=== PATIENT | female | born 1950 | race Caucasian/White ===

== ENCOUNTER 2022-07-01 14:06 | Emergency (ER) | payer OTHER, MEDICARE, SELFPAY ==
[2022-07-01 14:16] VITALS: BP 120/82; PULSE 74; RESP 18; TEMP 36.6; O2SAT 96; BMI 32.7
--- NOTE | 2022-07-01 14:48 | CRLHL7_ITS ---
For Patients: As a result of the Century Cures Act, medical imaging exams and procedure reports are released immediately into your electronic medical record. You may view this report before your referring provider. If you have questions, please contact your health care provider. INDICATION: Headache, left eye pain, nausea. TECHNIQUE: CT head without contrast. Coronal and sagittal reformats were generated. COMPARISON: CT head from 02/22/2016. FINDINGS: CSF spaces: Within normal limits for age. Brain parenchyma and extra-axial spaces: The ibrahim-white differentiation is normal. No sign of mass, hemorrhage, or midline shift. No extra-axial fluid collection. Skull base and calvarium: Mild mucosal thickening of the left maxillary sinus. The other visualized paranasal sinuses and mastoid air cells demonstrate no acute or significant findings. Stable hyperdense left globe, with scleral buckle, suggestive of prosthesis. The right orbits is grossly unremarkable. No skull fractures. IMPRESSION: No acute intracranial abnormality. Please note that all CT scans at this facility use dose modulation, iterative reconstruction, and/or weight-based dosing when appropriate to reduce radiation dose to as low as reasonably achievable. Dictated by Benjamin Steele MD @ 07/01/2022 3:52:12 PM (Electronically Signed)
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
== END 2022-07-01 15:55 | disposition home or self-care (01) ==
PROVIDERS: Emergency Provider Emergency Medicine Emergency Medical Services; PCP Family Medicine
DX: H57.12 Ocular pain, left eye (principal)
CPT/HCPCS: 70450; 99284; 99285

== ENCOUNTER 2023-08-22 14:30 | Outpatient (RCR) | payer MEDICARE, SELFPAY | END 2023-12-20 23:59 | disposition home or self-care (01) | PROVIDERS: PCP Family Medicine; Visit Provider Family Medicine | DX: H81.10 Benign paroxysmal vertigo, unspecified ear (principal); Z51.89 Encounter for other specified aftercare | CPT/HCPCS: 95992; 97110; 97140; 97161 ==

== ENCOUNTER 2024-08-28 17:57 | Observation (INO) | payer MEDICARE, SELFPAY ==
[2024-08-28] VITALS (9 sets, daily range): BP systolic 143–161; BP diastolic 91–99; PULSE 65–75; RESP 16–18; TEMP 36–36.6; O2SAT 95–96; BMI 33.8; BMI 34.0
--- OUTSIDE RECORDS SUMMARY | 2024-08-28 18:00 | XMS_ITS | Clinical Summary ---
Author Organization [facility] Address [place], [place] [address] Care Team Providers Care Winding Department Supervisor Name Role Phone Patty Mayo MD Primary Care Provide r Allergies Active Allergy Reactions Criticality Noted Date Comments Lisinopril Cough 08/24/2013 Morphine Rash 06/27/2007 Wool Hives High 09/12/2016 Medications MULTIVITAMIN TAB take 1 tablet by oral route once daily with food 0 03/08/20 07 Active calcium 600 mg capsule Take 1 capsule by mouth 2 times daily with meals. 0 01/01/20 10 Active cholecalciferol (VITAMIN D) 2,000 unit capsule Take 1 capsule by mouth once daily. 0 12/31/19 11 Active aspirin-acetaminop hen-caffeine, 250-250-65 mg, (EXCEDRIN MIGRAINE) 250-250-65 mg tablet Take 1 tablet by mouth every 6 hours if needed for Headache. Max acetaminophen dose: 4000mg in 24 hrs. 30 tablet 0 11/19/19 15 Active levothyroxine (SYNTHROID) 75 mcg tabletIndications: Hypothyroidism (acquired) Take 1 Tablet (75 mcg) by mouth before breakfast. 90 Tablet 3 09/07/19 24 Active losartan-hydrochlo rothiazide, 50-12.5 mg, (HYZAAR) 50-12.5 mg tabletIndications: Hypertension, unspecified type,HTN (hypertension) Take 1 Tablet by mouth once daily. 90 Tablet 3 09/26/19 24 Active atorvastatin (LIPITOR) 40 mg tabletIndications: Hyperlipidemia, unspecified hyperlipidemia type Take 1 Tablet (40 mg) by mouth at bedtime. 90 Tablet 3 09/26/19 24 Active timoloL maleate (TIMOPTIC) 0.5 % ophthalmic solution Place 1 Drop into both eyes two times daily. 02/15/20 24 Active arm brace (Wrist Brace) miscIndications:Le ft wrist pain As directed 1 Each. 03/07/20 24 Active leg brace (Ankle Brace) miscIndications:Ac ione left ankle pain As directed. 03/07/20 24 Active celecoxib (CeleBREX) 200 mg capsuleIndications :Hand numbness Take 1 Capsule (200 mg) by mouth once daily with a meal. For joint pains 30 Capsule 2 03/07/20 24 Active oxybutynin XL (DITROPAN XL) 10 mg CR tabletIndications: Urge incontinence Take 1 Tablet (10 mg) by mouth once daily. 90 Tablet 07/05/20 24 Active sertraline (ZOLOFT) 100 mg tabletIndications: Depression, major, single episode, mild (HC) Take 1 Tablet (100 mg) by mouth once daily in the morning. 90 Tablet 3 07/19/20 24 Active Active Problems Problem Noted Date Diagnosed Date Depression, major, single episode, mild 08/08/19 19 Hyperlipidemia, unspecified 04/06/2017 History of retinal detachment 11/15/2013 CMC arthritis, thumb, degenerative 08/16/2013 Adjustment disorder with depressed mood 08/31/19 13 Knee arthropathy 08/01/2012 H/O vitrectomy 07/27/2012 Overview (07/27/2012): Posterior Vitrectomy 20ga, Scleral Buckle [Other], 07-06-12, Dr. 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 2011 Postmenopausal atrophic vaginitis 02/21/2012 Mitral regurgitation 03/26/2009 Overview (05/01/2014): 2011 Echo - Trace to mild Screen for colon cancer 01/02/2009 Overview (01/02/2009): Colonoscopy 12/2008 normal repeat in 10 years HTN (hypertension) 12/11/2008 Overview (10/06/2009): Updated by system to replace inactive record Unspecified hypothyroidism 10/16/2006 Resolved Problems Problem Noted Date Diagnosed Date Resolved Date CMC arthritis, thumb, degenerative 08/19/2013 08/19/2013 Elevated blood pressure read ing without diagnosis of hypertension 01/18/2007 12/11/2008 Encounters Date Type Department Care Team Description 07/19/2024 10:00 AM DRY STARCH OPERATOR Ancillary Procedure [address] [address] 07/19/2024 8:50 AM DRY STARCH OPERATOR Office Visit [address] [address] Patty Mayo MD Depression 07/19/[address] [address] Patty Mayo MD Results 07/19/2024 Travel 07/02/[address] [address] Patty Mayo MD Refill Request (Oxybutynin Xl) 06/21/2024 Nurse Triage [address] [address] Patty Mayo MD Depression 06/21/[address] [address] Patty Mayo MD Medication Management from Last 3 Months Immunizations Name Administration Dates Next Due AMB Influenza, IIV3 (Age >=3 years)(Flu Clinic Only) 05/04/2012 COVID-19 VACCINE SPIKEVAX (M ODERNA 50MCG/0.5ML) 12YO+ PFS 04/12/2024 COVID-19 vaccine (Moderna 10 0mcg/0.5mL) PF MDV 09/01/2020,08/04/2020 Influenza, High-dose Inactivated 04/24/2018,03/24,06/23/2015 Influenza, High-dose Quadriv alent Inactivated 05/13/2021 Influenza, IIV4 04/01/2014 Influenza, Inactivated AIIV4 (Age 65+ Years) Preserv Free 06/03/2023,05/28/2020 Influenza, Inactivated IIV3 (Age 65+ Years) Preserv Free 04/12/2024,04/06/2017 Pneumococcal Poly,23-Valent (Pneumovax) 02/11/20 15 Pneumococcal conj 13-Valent (Prevnar 13) 016 Td (Age >=7 Years) 03/17/2000 Tdap 12/30/2010 Zoster (Zostavax-ZVL, live) 02/02/2012 Family History Medical History Relation Name Comments Liver cancer Brother 1 Toño Alcohol/Drug Father Stroke Father Other Grandchild Crohn's disease Diabetes Maternal Grandmother Thyroid Disease Maternal Grandmother Goit er Cancer-breast Mother Patricia Willard Age 81, on HRT Cancer Sister 3 ovarian or endo metrial Cancer Sister 4 cervical Anesthesia Problem No Family History Blood Disease No Family History Cancer-ovarian No Family History Relation Name Status Comments Brother 1 Toño Alive Brother 2 Armando Alive Daughter 1 Corrinna Alive Daughter 2 Sheri Alive Father Grandchild Maternal Grandfather Maternal Grandmother Mother Patricia Willard Alive Paternal Grandfather Paternal Grandmother Sister 1 Kami Alive Sister 2 Shartorey Alive Sister 3 Sister 4 Son 1 Lio Jr Alive Son 2 Nicolas Alive Son 3 Bonilla Alive Social History Tobacco Use Types Packs/Day Years Used Date Smoking Tobacco: Former Cigarettes 0.5 15 0 07/24/1976 - 07/24/1991 Passive Smoke Exposure: Never Smokeless Tobacco: Never Tobacco Cessation:Counseling Given: No Alcohol Use Standard Drinks/Week Comments Yes 0 (1 standard drink = 0.6 oz pur e alcohol) 1 wine per month PHQ-2 Answer Date Recorded PHQ-2 TOTAL SCORE 3 07/19/2024 Social Connections Answer Date Recorded Do you often feel lonely or isolated from those around you? 0 09/26/2023 Financial Resource Strain Answer Date R ecorded Difficulty of Paying Living Expenses 3 09/26/2023 Difficulty of Paying Living Expenses Not on file 09/26/2023 Food Insecurity Answer Date Recorded Do you worry your food will run out before you are able to buy more? 1 09/26/2023 Transportation Needs Answer Date Record ed Does lack of transportation keep you from medica l appointments? 1 09/26/2023 Does lack of transportation keep you from work, meetings or getting things that you need? 1 09/26/2023 Housing Stability Answer Date Recorded What is your housing situation today? 1 09/26/2023 Utilities Answer Date Recorded Do you have trouble paying f or utilities (for example, heat, electricity, water, phone)? 1 09/26/2023 Comments No Sex and Gender Information Value Date Recorded Sex Assigned at Not on file Legal Sex Female 5:46 AM DRY STARCH OPERATOR Gender Identity Not on file Sexual Orientation Not on file Occupation Industry Job Start Date Job End Date Not on file Not on file Not on file Not on file Obstetrics History Para Term AB IAB SAB Ectopic Multiple Livin g Live Births 6 5 5 5 Date Outcome GA Total Labor Labor/2nd/3rd Weight Sex Type Anes PTL Nieves A1 A5 Name Clin Term Term Term Term Term Last Filed Vital Signs Vital Sign Reading Time Taken Comments Blood Pressure 113/75 07/19/2024 9:00 AM DRY STARCH OPERATOR Pulse 62 07/19/2024 9:00 AM DRY STARCH OPERATOR Temperature 36.4 C (97.5 F) 11/28/2023 8:36 AM CDT Respiratory Rate 16 11/28/2023 9:30 AM CDT Oxygen Saturation 98% 07/19/2024 9:00 AM DRY STARCH OPERATOR Inhaled Oxygen Concentration - - Weight 85.6 kg (188 lb 11.2 oz) 07/19/2024 9:00 AM DRY STARCH OPERATOR Height 158.1 cm (5' 2.25) 09/26/2023 1:13 PM CS T Body Mass Index 34.24 09/26/2023 1:13 PM DRY STARCH OPERATOR Plan of Treatment Health Maintenance Due Date Last Done Comments Zoster (shingles) series for age 50+ (2 of 3) 03/29/2012 02/02/2012 Tetanus booster 12/30/2020 12/30/2010, 03/17/2000 RSV vaccine for adults or (1 - 1-dose 75+ series) 2024 BMI (ht and wt on same day) for age 18+ 09/25/2024 09/26/2023, 08/04/2022, 07/13/2021, Additional history exists Medicare Wellness for age 65+ 09/26/20244, 08/04/2022, 07/13/2021, Additional history exists Depression screening for age 12+ 07/19/2025 07/19/2024, 07/19/2024, 09/26/2023, Additional history exists Fecal testing sDNA-FIT (Sidney guard) for age 45-75 10/24/2026 10/25/2023 Lipids for age 45-75 06/30/2028 06/30/2023, 08/04/2022, 11/19/2021, Additional history exists Tdap Completed 12/30/2010 DEXA/DXA scan for age 65+ Completed 02/26/2015 Pneumococcal series for age 50+ Completed 6, 02/10/2015 Hepatitis C screening for ag e 18-79 Completed 03/14/2017 COVID-19 vaccine series Completed 04/12/20 24, 06/03/2023, 04/21/2022, Additional history exists Influenza for age 65+ Completed 04/12/2024 , 06/03/2023, 05/13/2021, Additional history exists Medical Devices Implanted Type Area Planning Specialist Device Identifier Shelf Expiration Date Model / Serial / Lot Sleeve Silcn 1.00i.D.X2.1mm Od [id number] [id number] [employer] - [id number] Implanted:Qty: 1 on 07/06/2012 by Dash Mendoza MD at [facility] Left: Eye 08/23/2018 [id number]# / / [id number] Strip Silcn 1.25x4.0x125 [id number] - [id number] Implanted:Qty: 1 on 07/06/2012 by Dash Mendoza MD at [facility] Left: Eye 09/20/2018 [id number]# / / [id number] Wire Kirs [id number] Smooth 6/Pk 1646-10-000 Depuy/Juan - [id number] Implanted:Qty: 1 on 11/28/2023 by Tate Gray DPM at [facility] Left: Toe [employer] 0 / / Short K-Wire Implanted:Qty: 1 on 11/28/2023 by Tate Gray DPM at [facility] Left: Toe [id number] / / Procedures Procedure Name Priority Date/Time Associated Diagnosis Comments XR SPINE LUMBAR 3 VIEWS Routine 07/19/2024 10:03 AM DRY STARCH OPERATOR Acute midline low back pain with left-sided sciatica SDNA-FIT EXTERNAL (COLOGUARD) Routine 10/25/2023 9:30 AM CDT Screening for colon cancer LIPID PANEL W REFLEX MEASURED LDL Routine 06/30/2023 2:13 PM DRY STARCH OPERATOR Hyperlipidemia, unspecified hyperlipidemia type ANTI HCV Routine 03/14/2017 12:20 PM CDT Need for hepatitis C screening test XR DXA BONE DENSITY 2 SITES AXIAL Routine 02/26/2015 2:14 PM CDT Postmenopausal from Last 3 Months or Most Recently Relevant to Health Maintenance Results * XR SPINE LUMBAR 3 VIEWS (07/19/2024 10:03 AM DRY STARCH OPERATOR) Anatomical Region Laterality Modality LUMBAR SPINE Computed Radiogr aphy 07/19/2024 4:15 PM DRY STARCH OPERATOR Impressions 07/19/2024 4:15 PM DRY STARCH OPERATOR Lower lumbar spine degenerative facet arthropathy particularly on the right. Left-sided bridging osteophyte formation at L4-5. Dictated by Dash Baltazar MD @ 07/19/2024 4:15:29 PM (Electronically Signed) Narrative 07/19/2024 4:15 PM DRY STARCH OPERATOR For Patients: As a result of the Cures Act, medical imaging exams and procedure reports are released immediately into your electronic medical record. You may view this report before your referring provider. If you have questions, please contact your health care provider. INDICATION: Acute midline low back pain with left-sided sciatica TECHNIQUE: 3-view lumbar spine. COMPARISON: none FINDINGS: Mild leftward curvature lumbar spine. Degenerative facet arthropathy lower lumbar spine particularly at L5-S1. No vertebral body compression fracture. Disc space narrowing L4-5. Vascular calcifications. Procedure Note Dash Baltazar MD - 07/19/2024 For Patients: As a result of the 21st Century Cures Act, medical imagingexams and procedure reports are released immediately into your electronicmedical record. You may view this report before your referring provider.If you have questions, please contact your health care provider. INDICATION: Acute midline low back pain with left-sided sciatica TECHNIQUE: 3-view lumbar spine. COMPARISON: none FINDINGS: Mild leftward curvature lumbar spine. Degenerative facet arthropathy lowerlumbar spine particularly at L5-S1. No vertebral body compressionfracture. Disc space narrowing L4-5. Vascular calcifications. IMPRESSION: Lower lumbar spine degenerative facet arthropathy particularly on theright. Left-sided bridging osteophyte formation at L4-5. Dictated by Dash Baltazar MD @ 07/19/2024 4:15:29 PM (Electronically Signed) us Patty Mayo MD GENERAL IMAGING Final Result * SDNA-FIT EXTERNAL (COLOGUARD) (10/25/2023 9:30 AM CDT) NONINV COLON CA DNA+OCC BLD SCRN STL-IMP Negative Negative 10/31/2023 9:02 AM CDT [facility] (CLIA #:[id number]) Comment: NEGATIVE TEST RESULT. A negative Cologuard result indicates a low likelihood that a colorectal cancer (CRC) or advanced adenoma (adenomatous polyps with more advanced pre-malignant features) is present. The chance that a person with a negative Cologuard test has a colorectal cancer is less than 1 in 1500 (negative predictive value >99.9%) or has an advanced adenoma is less than 5.3% (negative predictive value 94.7%). These data are based on a prospective cross-sectional study of 10,000 individuals at average risk for colorectal cancer who were screened with both Cologuard and colonoscopy. (Anca Putnam et al, N Engl J Med 2014;370(14):6033-8556) The normal value (reference range) for this assay is negative. COLOGUARD RE-SCREENING RECOMMENDATION: Periodic colorectal cancer screening is an important part of preventive healthcare for asymptomatic individuals at average risk for colorectal cancer. Following a negative Cologuard result, the [place] [employer] Society and U.S. Multi-Society Task Force screening guidelines recommend a Cologuard re-screening interval of 3 years. References: [place] [employer] Guideline for Colorectal Cancer Screening: https://www.cancer.org/cancer/njoia-llcidz-egwdjb/fwrctrgmb-bvgypphuu-qisycpi/ac s-rec ommendations.html.; Fito DEJESUS, Tia OLIVAREZ, Jerad PEREIRA, Colorectal Cancer Screening: Recommendations for Physicians and Patients from the U.S. Multi-Society Task Force on Colorectal Cancer Screening , Am J Gastroenterology 2017; 112:2203-8875. TEST DESCRIPTION: Composite algorithmic analysis of stool DNA-biomarkers with hemoglobin immunoassay. Quantitative values of individual biomarkers are not reportable and are not associated with individual biomarker result reference ranges. Cologuard is intended for colorectal cancer screening of adults of either sex, 45 years or older, who are at average-risk for colorectal cancer (CRC). Cologuard has been approved for use by the U.S. FDA. The performance of Cologuard was established in a cross sectional study of average-risk adults aged 50-84. Cologuard performance in patients ages 45 to 49 years was estimated by sub-group analysis of near-age groups. Colonoscopies performed for a positive result may find as the most clinically significant lesion: colorectal cancer [4.0%], advanced adenoma (including sessile serrated polyps greater than or equal to 1cm diameter) [20%] or non- advanced adenoma [31%]; or no colorectal neoplasia [45%]. These estimates are derived from a prospective cross-sectional screening study of 10,000 individuals at average risk for colorectal cancer who were screened with both Cologuard and colonoscopy. (Anca Reaves. et al, N Engl J Med 2014;370(14):7784-1418.) Cologuard may produce a false negative or false positive result (no colorectal cancer or precancerous polyp present at colonoscopy follow up). A negative Cologuard test result does not guarantee the absence of CRC or advanced adenoma (pre-cancer). The current Cologuard screening interval is every 3 years. ([place] [employer] Society and U.S. Multi-Society Task Force). Cologuard performance data in a 10,000 patient pivotal study using colonoscopy as the reference method can be accessed at the following location: www.[employer]/results. Additional description of the Cologuard test process, warnings and precautions can be found at www.cologuard.com. Stool specimen (specimen) (Rectum) 10/25/2023 9:30 AM CDT 10/26/2023 1:54 PM CDT Patty Mayo MD URINE Final Result [facility] (CLIA #:[id number]) [address] [place] [address], * (ABNORMAL) LIPID PANEL W REFLEX MEASURED LDL (06/30/2023 2:13 PM DRY STARCH OPERATOR) CHOLESTEROL,TOTAL 158 100 - 199 mg/dL 06/30/2023 10:07 PM [facility] Comment: Cholesterol, Total Reference Ranges Desirable <200 mg/dL Borderline 200-239 mg/dL High >=240 mg/dL TRIGLYCERIDES 306(H) <150 mg/dL 06/30/2023 10:07 PM [facility] HDL CHOLESTEROL 33(L) >40 mg/dL 10:07 PM DRY STARCH OPERATOR [facility] NON-HDL CHOLESTEROL 125 <145 mg/dl 06/30/2023 10:07 PM [facility] CHOL/HDL RATIO 4.79(H) <4.50 06/30/2023 10:07 PM DRY STARCH OPERATOR [facility] LDL CHOLESTEROL 64 <=130 mg/dL 06/30/2023 10:07 PM [facility] VLDL CHOLESTEROL 61(H) <=30 mg/dL 06/30/2023 10:07 PM DRY STARCH OPERATOR [facility] PROVIDER ORDERED STATUS RANDOM 06/30/2023 10:07 PM [facility] Blood BLOOD SPECIMEN / Unknown Venipuncture / Unknown 06/30/2023 2:13 PM DRY STARCH OPERATOR 06/30/2023 2:15 PM DRY STARCH OPERATOR Patty Mayo MD CHEMISTRY Final Result [facility] [address] [place] [address], [place] * ANTI HCV [46085.2] (03/14/2017 12:20 PM CDT) HEPATITIS C ANTIBODY Non-Reacti ve Non-Reacti ve 03/14/2017 4:24 PM CDT [facility] Blood BLOOD SPECIMEN / Unknown Venipuncture / Unknown 03/14/2017 12:20 PM CDT 03/14/2017 12:20 PM CDT Narrative [facility] - 03/14/2017 4:24 PM CDT Antibodies to HCV not detected; does not exclude the possibility of exposure to HCV. Patty Mayo MD SEND OUTS Final Result Performing Organization Address City/Va Hospital/ZIP Co de Phone Number [facility] [address] [place] [address], [place] * (ABNORMAL) XR DXA BONE DENSITY 2 SITES (02/26/2015 2:14 PM CDT) Anatomical Region Laterality Modality Spine, HIPS, HIPL, HIPR Other Narrative 03/04/2015 8:28 AM CDT Please see scanned document for results of this study. Patty Mayo MD DEXA Final Result from Last 3 Months or Most Recently Relevant to Health Maintenance Insurance MEDICARE PART A HB ONLY [employer] MR Advance Directives * Full Code (Latest Code Status on File) Date Activated Date Inactivated Comments 11/28/2023 6:02 AM 11/28/2023 12:12 PM Question Answer Comments Code Status Discussion: Reviewed Preferences * Full Code Date Activated Date Inactivated Comments 11/16/2012 8:02 AM 11/16/2012 12:01 PM * Full Code Date Activated Date Inactivated Comments 09/14/2012 6:39 AM 09/14/2012 11:25 AM * Full Code Date Activated Date Inactivated Comments 07/06/2012 7:00 AM 07/06/2012 2:12 PM Care Teams Winding Department Supervisor Relationship Specialty Start Date End Date Patty Mayo MD [address] [place] [address] PCP - General 11/06/05
--- NOTE | 2024-08-28 18:20 | ED.NAVMDI ---
HPI - Nausea/Vomiting/Diarrhea General Time Seen by Provider: 18:20 Date Seen: 08/28/24 Chief complaint: Nausea/Vomiting Stated complaint: Vomit/diarrhea Time Seen by Provider: 08/28/24 17:59 Source: patient, EMS, RN notes reviewed and old records reviewed Mode of arrival: EMS Limitations: no limitations History of Present Illness HPI Narrative: This 74-year-old female is brought in by EMS with 2 days of nausea and vomiting, diarrhea. She has had 3-4 episodes a day. She states she is also coughing. She complains of abdominal pain that radiates into her back with this. She was brought in by [facility] and was given a 4 mg Zofran ODT which nursing staff still could see had not dissolved in the patient's mouth at the time of triage. She is not aware of any ill contacts. She has had significant coughing with this and does endorse body aches that she had earlier today. She states now is just her abdomen into her back. Diminished oral intake. No fevers noted. Her past medical history as reviewed from [facility] is hypertension, mitral regurgitation, hypothyroidism, hyperlipidemia, osteoarthritis, history of adjustment disorder with depressed mood, history of major depression single episode. She has had knee replacement, history of vitrectomy, history of retinal detachment. Related Data Home Medications ?Medication ?Instructions ?Recorded ?Confirmed atorvastatin 40 mg tablet 40 mg PO HS 07/01/22 08/28/24 levothyroxine 100 mcg tablet 100 mcg PO DAILY 07/01/22 08/28/24 losartan 50 mg-hydrochlorothiazide 1 tab PO DAILY 07/01/22 08/28/24 12.5 mg tablet timolol maleate 0.5 % eye drops 1 drp ophthalmic (eye) Q12H 07/01/22 07/01/22 levothyroxine 75 mcg tablet 75 mcg PO QAM 08/28/24 08/28/24 oxybutynin chloride 10 mg 10 mg PO DAILY 08/28/24 08/28/24 tablet,extended release 24 hr sertraline 100 mg tablet 100 mg PO QAM 08/28/24 08/28/24 Allergies Allergy/AdvReac Type Severity Reaction Status Date / Time lisinopril Allergy Mild Verified 08/28/24 18:06 morphine Allergy Mild Hives Verified 08/28/24 18:06 wool Allergy Mild Rash Verified 08/28/24 18:06 pollen extracts Allergy Unknown Verified 08/28/24 18:06 Review of Systems Status of ROS: Reports: 6 or more systems reviewed and unremarkable except as noted in History and below [facility] Medical History Adjustment disorder with depressed mood ?F43.21 - Adjustment disorder with depressed mood (ICD-10) Hyperlipidemia ?E78.5 - Hyperlipidemia, unspecified (ICD-10) Hypothyroidism ?E03.9 - Hypothyroidism, unspecified (ICD-10) Mitral regurgitation ?I34.0 - Nonrheumatic mitral (valve) insufficiency (ICD-10) Hypertension ?I10 - Essential (primary) hypertension (ICD-10) Social History What is your current living situation?: I presently have a place to live Problems where you live: no known problems Problems where you live details: NA In the past 12 months, utilities in danger of being shut off: no In past 12 months, lack of transportation kept you from medical appts, meetings, work, or getting things needed for daily living: no In the past 12 mos, have been you worried that your food would run out before you had money to buy more?: never true In the past 12 mos, the food you bought just didn't last and you didn't have money to buy more?: never true Highest level of school completed/degree received: GED or equivalent Smoking Status: Never smoker Do you use any of these nicotine containing products: None How often do you have a drink containing alcohol: never AUDIT-C Alcohol total score: 0 Non-prescribed substance use: denies use Caffeine: No How often does anyone, including family, friends and others, physically hurt you: never How often does anyone, including family, friends and others, insult or talk down to you: never How often does anyone, including family, friends and others, threaten you with harm: never How often does anyone, including family, friends and others, scream or curse at you: never service: No Exam Const: Vital Signs, click to edit/add: Vital Signs - 24 hr 08/28/24 18:03 08/28/24 18:30 Temperature 96.8 F L Pulse Rate [Pulse Oximeter] 66 Respiratory Rate 18 Blood Pressure [Ri ght Upper Arm] 161/99 H Pulse Oximetry 95 96 Oxygen Delivery Me thod Room Air This 74-year-old female seen in exam room 6, she looks like she does not feel well, lying on the bed but is able to speak in complete sentences. Sclera clear, conjugate gaze, lips are normal but oropharynx with dry mucosa. Lungs with some rhonchi but no wheezing or crackles, no tachypnea, no accessory muscle use. CV regular rate and rhythm, no murmur, normal S1-S2, no S3-S4. Abdomen maybe seems mildly distended, bowel sounds are distant. She complains of pain anywhere I touch on her abdomen, she does guard some. I cannot appreciate any organomegaly or masses at this time but patient's response to palpation is definitely sensitive. She is moving extremities, no lower extremity edema. Documenting provider has reviewed patient's vital signs: yes Course Course ED Course: Will place an IV, draw blood work, patient will get a portable chest x-ray and will certainly be doing CT of her abdomen and pelvis given her discomfort. I do wonder if she may have influenza with all of her respiratory and abdominal symptoms put together. Will have to see where her labs are, see how she does clinically here. We are obviously doing triple viral swab. She could have surgical abdomen, bowel obstruction, ileus or simply gastroenteritis with significant symptoms. Hopefully the imaging and the labs will elucidate a diagnosis and plan for this patient. She will be watched closely. Reevaluation(s) Time of Reevaluation #1: 20:37 Reevaluation #1: Have reviewed with Shireen that she has influenza A. She did get her flu shot this year as well as COVID vaccine. She would take Tamiflu, will dose her renally at 30 mg. She is still quite dry, lips are pasty, tongue is pasty right now, she had received 500 mL normal saline. Her sodium is minimally low at 133, potassium low at 3.1, will subsequently start some maintenance IV fluids with normal saline with 20 mEq potassium to replete these. She is still complaining of severe back and abdominal pain. Reviewed with her that this is very likely just influenza. Will give her 1000 mg of Tylenol. Will have our general surgeon look at her CT just to make sure she is not seeing anything there that could be surgical. Patient absolutely does not feel like she can go home, lives alone in feels too weak to take care of herself. When she was resting, her oxygenation was going down to 90%, do think she needs observation and do wonder she might start becoming hypoxic. Patient does state that her nausea is better with the Zofran. Consultations Consultation #1: Have spoken with the hospitalist Key Devlin. She accepts but is aware that our surgeon Dr. Watts is reviewing the CT. Have reviewed medicines and interventions I have started down here. She will watch for hypoxia. 8:56 p.m.: Have spoken with Dr. Watts after review of the CT. She states that these are congenital in usually found in kids. They are rare in adults and left side is more common than right-sided. She agrees that this is likely incidental and the generalized abdominal pain and back pain are coming from influenza. If it should start to point to this being asymptomatic finding, this would require repair elsewhere but she is doubtful that the patient is even symptomatic from this or that it will likely require any intervention in patient's life time. Time: 20:51 Vital Signs Vital signs: Initial Vital Signs Temperature 96.8 F L 08/28/24 18:03 Temperature Source Temporal Artery Scan 08/28/24 18:03 Pulse Rate 66 08/28/24 18:03 Respiratory Rate 18 08/28/24 18:03 Blood Pressure 161/99 H 08/28/24 18:03 Blood Pressure Mean 119 H 08/28/24 18:03 Blood Pressure Position Semi-Fowlers 08/28/24 18:03 Pulse Oximetry 95 08/28/24 18:03 Oxygen Delivery Method Room Air 08/28/24 18:03 Vital Signs Temperature 96.8 F L 08/28/24 18:03 Pulse Rate 66 08/28/24 18:03 Respiratory Rate 18 08/28/24 18:03 Blood Pressure 161/99 H 08/28/24 18:03 Pulse Oximetry 95 08/28/24 18:03 Oxygen Delivery Method Room Air 08/28/24 18:03 Temperature 98 F 08/28/24 21:45 Pulse Rate 75 08/28/24 21:45 Respiratory Rate 16 08/28/24 21:56 Blood Pressure 143/91 H 08/28/24 21:45 Pulse Oximetry 95 08/28/24 21:56 Oxygen Delivery Method Room Air 08/28/24 21:56 Medications Administered Medications: Generic Name Dose Route Start Last Admin Trade Name Venkat PRN Reason Stop Dose Admin Oseltamivir Phosphate 30 mg 08/28/24 20:42 08/28/24 21:03 Oseltamivir 30 Mg Capsule PO 08/28/24 20:43 30 mg ONCE ONE Administration Discontinued Medications Generic Name Dose Route Start Last Admin Trade Name Venkat PRN Reason Stop Dose Admin Acetaminophen 1,000 mg 08/28/24 20:41 08/28/24 20:57 Acetaminophen 500 Mg Tablet PO 08/28/24 20:42 1,000 mg ONCE ONE Administration Sodium Chloride 500 mls @ 500 mls/hr 08/28/24 18:24 08/28/24 20:42 0.9 % Sodium Chloride 500 Ml IV 08/28/24 19:23 Infused .Q1H ONE Infusion MDM - Nausea/Vomiting/Diarrhea Lab Data Attestation: I reviewed the patient's lab results. Labs: Lab Results 08/28/24 08/28/24 08/28/24 Range/Units 18:14 18:40 18:50 WBC 6.71 (4.50-11.00) K/uL RBC 4.44 (4.00-5.20) m/uL Hgb 13.4 (12.0-16.0) gm/dL Hct 40.0 (33.0-51.0) % MCV 90 (80-100) fL MCH 30 (26-34) pg MCHC 34 (32-36) gm/dL RDW Coeff of Jamil 13.0 (11.5-15.5) % Plt Count 251 (140-440) K/uL Neut % (Auto) 64.9 (42.0-72.0) % Lymph % (Auto) 20.6 (20-44) % [place] % (Auto) 14.2 H (0.0-11.0) % Eos % (Auto) 0.1 (0.0-7.0) % Baso % (Auto) 0.1 (0.0-3.0) % Neut # (Auto) 4.35 (1.7-7.0) K/uL Lymph # (Auto) 1.38 (0.90-2.90) K/uL [place] # (Auto) 1.00 H (0.00-0.90) K/UL Eos # (Auto) 0.01 (0.00-0.50) K/uL Baso # (Auto) 0.01 (0.00-0.30) K/uL Abs Immat Gran (auto) 0.01 (0.00-0.30) K/uL Imm/Tot Granulo (auto) 0.1 % Sodium 133 L (135-149) mmol/L Potassium 3.1 L (3.6-5.1) mmol/L Chloride 99 (96-114) mmol/L Carbon Dioxide 24 (20-32) mmol/L Anion Gap 10 (7-15) mEq/L BUN 12 (7-30) mg/dL Creatinine 0.7 (0.5-1.5) mg/dL Estimated Creat Clear 38.44 Estimated GFR 90 ml/min Glucose 139 H (60-115) mg/dL Lactate 1.5 (0.5-1.9) mmol/L Calcium 8.7 (8.4-10.6) mg/dL Magnesium 2.1 (1.5-2.6) mg/dL Total Bilirubin 1.4 (0.1-1.5) mg/dL AST 34 (12-35) U/L ALT 29 (4-35) U/L Alkaline Phosphatase 95 (40-150) U/L Troponin I < 0.01 L (0.01-0.04) ng/mL C-Reactive Protein 0.8 (0.5-1.0) mg/dL NT-Pro-B Natriuret Pep 333 pg/mL Total Protein 6.8 (6.0-8.3) g/dL Albumin 4.0 (3.3-5.0) g/dL Urine Color (Yellow) Urine Appearance (Clear) Urine pH (5.0-8.5) Ur Specific [place] (1.000-1.030) Urine Protein (Negative) Urine Glucose (UA) (Negative) Urine Ketones (Negative) Urine Blood (Negative) Urine Nitrite (Negative) Urine Bilirubin (Negative) Urine Urobilinogen (0.2-1.0) Ur Leukocyte Esterase (Negative) Urine RBC (0-2) Urine WBC (0-5) Ur Squamous Epith Cells (None-Few) Urine Bacteria (None) SARS-CoV-2 (PCR) Negative SARS-CoV-2 (Negative) Influenza Type A (PCR) POSITIVE PCR FLU A A (Negative) Influenza Type B (PCR) Negative PCR FLU B (Negative) RSV (PCR) Negative PCR RSV (Negative) Lab Acknowledgement POC Creatinine 0.8 (0.6-1.3) mg/dl 08/28/24 08/28/24 Range/Units 18:51 21:12 WBC (4.50-11.00) K/uL RBC (4.00-5.20) m/uL Hgb (12.0-16.0) gm/dL Hct (33.0-51.0) % MCV (80-100) fL MCH (26-34) pg MCHC (32-36) gm/dL RDW Coeff of Jamil (11.5-15.5) % Plt Count (140-440) K/uL Neut % (Auto) (42.0-72.0) % Lymph % (Auto) (20-44) % [place] % (Auto) (0.0-11.0) % Eos % (Auto) (0.0-7.0) % Baso % (Auto) (0.0-3.0) % Neut # (Auto) (1.7-7.0) K/uL Lymph # (Auto) (0.90-2.90) K/uL [place] # (Auto) (0.00-0.90) K/UL Eos # (Auto) (0.00-0.50) K/uL Baso # (Auto) (0.00-0.30) K/uL Abs Immat Gran (auto) (0.00-0.30) K/uL Imm/Tot Granulo (auto) % Sodium (135-149) mmol/L Potassium (3.6-5.1) mmol/L Chloride (96-114) mmol/L Carbon Dioxide (20-32) mmol/L Anion Gap (7-15) mEq/L BUN (7-30) mg/dL Creatinine (0.5-1.5) mg/dL Estimated Creat Clear Estimated GFR ml/min Glucose (60-115) mg/dL Lactate (0.5-1.9) mmol/L Calcium (8.4-10.6) mg/dL Magnesium (1.5-2.6) mg/dL Total Bilirubin (0.1-1.5) mg/dL AST (12-35) U/L ALT (4-35) U/L Alkaline Phosphatase (40-150) U/L Troponin I (0.01-0.04) ng/mL C-Reactive Protein (0.5-1.0) mg/dL NT-Pro-B Natriuret Pep pg/mL Total Protein (6.0-8.3) g/dL Albumin (3.3-5.0) g/dL Urine Color Yellow (Yellow) Urine Appearance Clear (Clear) Urine pH 6.5 (5.0-8.5) Ur Specific [place] 1.015 (1.000-1.030) Urine Protein 1+ A (Negative) Urine Glucose (UA) Negative (Negative) Urine Ketones 2+ A (Negative) Urine Blood 1+ A (Negative) Urine Nitrite Negative (Negative) Urine Bilirubin Negative (Negative) Urine Urobilinogen 0.2 (0.2-1.0) Ur Leukocyte Esterase Negative (Negative) Urine RBC 2-5 A (0-2) Urine WBC 0-2 (0-5) Ur Squamous Epith Cells None (None-Few) Urine Bacteria Few A (None) SARS-CoV-2 (PCR) (Negative) Influenza Type A (PCR) (Negative) Influenza Type B (PCR) (Negative) RSV (PCR) (Negative) Lab Acknowledgement Test Added POC Creatinine (0.6-1.3) mg/dl Imaging Data CT scan - abdomen: Attestation: I have reviewed the pertinent imaging results. Radiologist's impression: Patient: ESME HAJI Facility:?[facility] Patient ID:?[id number] Site Patient ID:?[id number]. Site :?[id number] Study:?CT-Abdomen/Pelvis W/ 91CC [id number]/[id number] 7:19:13 PM Ordering Physician:Basil Fernandez Final Report: INDICATION: Abdominal pain, N/V/D TECHNIQUE: CT abdomen and pelvis acquired with 91 mL Isovue 370 IV contrast. COMPARISON: None. FINDINGS: Lower chest: Unremarkable. Liver: Non cirrhotic morphology. Moderate diffuse steatosis. No suspicious focal mass. Gallbladder and bile ducts: Cholelithiasis. No gallbladder wall thickening or pericholecystic inflammation. Pancreas: Unremarkable. Spleen: Normal size and appearance. Adrenal glands: Nodular thickening left adrenal gland to 6 mm (series 2, image 40). Normal right adrenal gland. Kidneys: Symmetric enhancement. No nephrolithiasis or hydronephrosis. 6.5 cm right posterior interpolar renal simple cyst. GI tract: Normal caliber and wall thickness. No significant associated inflammatory change. Sigmoid diverticulosis. 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 No bowel obstruction. Appendix not visualized. Vasculature: Abdominal aorta is normal in caliber. Mesenteric arteries are patent. Lymph nodes: No lymphadenopathy. Peritoneum/Abdominal Wall: Unremarkable. No sign of mass or infiltration. No free air or significant free fluid. Pelvis: Hysterectomy. Partial urinary bladder distention with wall thickening likely related to underdistention. Rectal and vaginal prolapse extending inferiorly out of the field of view. Bones: Mild degenerative changes of the imaged spine. No aggressive osseous lesions. IMPRESSION: 1. No acute obstructive or inflammatory process within the abdomen or pelvis. 2. 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 No evidence of bowel obstruction. 3. Pelvic floor rectal and vaginal prolapse. 4. Other incidental findings as detailed above. Please note that all CT scans at this facility use dose modulation, iterative reconstruction, and/or weight-based dosing when appropriate to reduce radiation dose to as low as reasonably achievable. Dictated by Alex Whitlock MD @ 08/28/2024 7:50:09 PM (Electronic Signature) Chest x-ray: Attestation: I have reviewed the pertinent imaging results. My impression: I see no evidence of any infiltrate on my preliminary review. Radiologist's impression: Patient: ESME HAJI Facility:?[facility] Patient ID:?[id number] Site Patient ID:?[id number]. Site :?[id number] Study:?XRay-Chest 1 VIEW-08/28/2024 7:26:46 PM Ordering Physician:Basil Fernandez Final Report: INDICATION: Cough TECHNIQUE: 1 view chest radiograph COMPARISON: 02/22/2016 FINDINGS: Devices: None. Lung volumes are good. No focal or diffuse opacities. No pleural effusion. No pneumothorax. Heart size is normal. Atherosclerotic vascular calcifications. IMPRESSION: Lungs clear. No acute findings. Dictated by Mary Brown MD @ 08/28/2024 7:38:21 PM (Electronic Signature Discharge Plan Discharge Clinical Impression: Influenza A, Nausea, vomiting, and diarrhea, Abdominal pain Patient Disposition: Admitted As Observation Discharge Location: [facility]
[2024-08-28 18:45] LABS: Creatinine, Point-of-Care* 0.8 mg/dl (0.6-1.3)
[2024-08-28 18:52] LABS: Lactate* 1.5 mmol/L (0.5-1.9)
[2024-08-28 18:53] LABS: Basophils Absolute Auto 0.01 K/uL (0.00-0.30); Basophils Percent Auto 0.1 % (0.0-3.0); Eosinophils Absolute Auto 0.01 K/uL (0.00-0.50); Eosinophils Percent Auto 0.1 % (0.0-7.0); Hemoglobin* 13.4 gm/dL (12.0-16.0); Immature Granulocytes Abs Auto 0.01 K/uL (0.00-0.30); Immature Granulocytes Pct Auto 0.1 %; Lymphocytes Absolute Auto 1.38 K/uL (0.90-2.90); Lymphocytes Percent Auto 20.6 % (20-44); Mean Corpuscular HGB Conc 34 gm/dL (32-36); Mean Corpuscular Hemoglobin 30 pg (26-34); Mean Corpuscular Volume 90 fL (80-100); Monocytes Percent Auto 14.2 % (0.0-11.0); Neutrophils Absolute Auto 4.35 K/uL (1.7-7.0); Neutrophils Percent Auto 64.9 % (42.0-72.0); Platelet Count* 251 K/uL (140-440); Red Blood Count 4.44 m/uL (4.00-5.20); White Blood Count* 6.71 K/uL (4.50-11.00)
[2024-08-28 18:54] LABS: PCR FLU A POSITIVE PCR FLU A (Negative); PCR FLU B Negative PCR FLU B (Negative); PCR RSV Negative PCR RSV (Negative); SARS PCR* Negative SARS-CoV-2 (Negative)
[2024-08-28 18:54] LABS: Appearance Urine Clear (Clear); Bilirubin Urine Negative (Negative); Blood Urine 1+ (Negative); Color Urine Yellow (Yellow); Glucose Urine Negative (Negative); Ketones Urine 2+ (Negative); Leukocyte Esterase Urine Negative (Negative); Nitrite Urine Negative (Negative); Protein Urine 1+ (Negative); Specific Gravity Urine 1.015 (1.000-1.030); Urobilinogen Urine 0.2 (0.2-1.0); WBC Urine 0-2 (0-5); pH Urine 6.5 (5.0-8.5)
[2024-08-28 18:55] LABS: Bacteria Urine Few
[2024-08-28 19:08] LABS: Chloride* 99 mmol/L (96-114); Sodium* 133 mmol/L (135-149)
[2024-08-28 19:09] LABS: Potassium* 3.1 mmol/L (3.6-5.1)
[2024-08-28 19:10] LABS: Creatinine* 0.7 mg/dL (0.5-1.5); Est. Creatinine Clearance* 38.44; Estimated Glomerular Filt Rate 90 ml/min
[2024-08-28 19:11] LABS: Alanine Aminotransferase* 29 U/L (4-35); Alkaline Phosphatase* 95 U/L (40-150); Anion Gap 10 mEq/L (7-15); Aspartate Amino Transferase* 34 U/L (12-35); Bilirubin Total* 1.4 mg/dL (0.1-1.5); Blood Urea Nitrogen* 12 mg/dL (7-30); Carbon Dioxide* 24 mmol/L (20-32); Slide Review Reflex No; Total Protein* 6.8 g/dL (6.0-8.3)
[2024-08-28 19:12] LABS: Calcium* 8.7 mg/dL (8.4-10.6); Glucose* 139 mg/dL (60-115)
[2024-08-28 19:14] LABS: C Reactive Protein* 0.8 mg/dL (0.5-1.0)
[2024-08-28 19:23] LABS: NT Pro B Type NatriureticPept* 333 pg/mL; Troponin I* < 0.01 ng/mL (0.01-0.04)
--- OUTSIDE RECORDS SUMMARY | 2024-08-28 19:39 | XMS_ITS | Clinical Summary ---
Author Organization [facility] Address [place], [place] [address] Care Team Providers Care Forklift Picker Name Role Phone Patty Mayo MD Primary [...] 24 Active leg brace (Ankle Brace) miscIndications:Ac nome left ankle pain As directed. 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 Postmenopausal atrophic [...] Department Care Team Description 07/19/2024 10:00 AM PRIVACY ANALYST Ancillary Procedure [address] [address] 07/19/2024 8:50 AM PRIVACY ANALYST Office Visit [address] [address] Patty Mayo MD Depression 07/19/[address] [address] Patty Mayo MD Results 07/19/2024 Travel 07/02/[address] [address] Patty Mayo MD Refill Request (Oxybutynin Xl) 06/21/2024 Nurse Triage [address] [address] Patty Myao MD Depression 06/21/[address] [address] Patty Mayo MD Medication Management from Last [...] on file Legal Sex Female 5:46 AM PRIVACY ANALYST Gender Identity Not on file Sexual Orientation [...] Comments Blood Pressure 113/75 07/19/2024 9:00 AM PRIVACY ANALYST Pulse 62 07/19/2024 9:00 AM PRIVACY ANALYST Temperature 36.4 C (97.5 F) 11/28/2023 8:36 AM CDT Respiratory Rate 16 11/28/2023 9:30 AM CDT Oxygen Saturation 98% 07/19/2024 9:00 AM PRIVACY ANALYST Inhaled Oxygen Concentration - - Weight 85.6 kg (188 lb 11.2 oz) 07/19/2024 9:00 AM PRIVACY ANALYST Height 158.1 cm (5' 2.25) 09/26/2023 1:13 PM CS T Body Mass Index 34.24 09/26/2023 1:13 PM PRIVACY ANALYST Plan of Treatment Health Maintenance Due Date [...] 09/26/2023, Additional history exists Fecal testing sDNA-FIT (Hughes guard) for age 45-75 10/24/2026 10/25/2023 Lipids [...] history exists Medical Devices Implanted Type Area Wallpaper Remover Steam Device Identifier Shelf Expiration Date Model / Serial / Lot Sleeve Silcn 1.00i.D.X2.1mm Od Sty70 [id number] [employer]ian - [id number] Implanted:Qty: 1 on 07/06/2012 by Dash Mendoza MD at [facility] Left: Eye 08/23/2018 [id number]# / / [id number] Strip Silcn 1.25x4.0x125 [id number] - [id number] Implanted:Qty: 1 on 07/06/2012 by Dash Mendoza MD at [facility] Left: Eye 09/20/2018 [id number]# / / [id number] Wire Kirs .[id number] Smooth 6/Pk 1646-10-000 Depuy/Juan - [id number] Implanted:Qty: 1 on 11/28/2023 by Tate Gray DPM at [facility] Left: Toe [employer] 0 / / Short K-Wire Implanted:Qty: 1 on 11/28/2023 by Tate Gray DPM at [facility] Left: Toe [id number] / / Procedures Procedure Name Priority Date/Time Associated Diagnosis Comments XR SPINE LUMBAR 3 VIEWS Routine 07/19/2024 10:03 AM PRIVACY ANALYST Acute midline low back pain with left-sided sciatica SDNA-FIT EXTERNAL (COLOGUARD) Routine 10/25/2023 9:30 AM CDT Screening for colon cancer LIPID PANEL W REFLEX MEASURED LDL Routine 06/30/2023 2:13 PM PRIVACY ANALYST Hyperlipidemia, unspecified hyperlipidemia type ANTI HCV Routine 03/14/2017 12:20 PM CDT Need for hepatitis C screening test XR DXA BONE DENSITY 2 SITES AXIAL Routine 02/26/2015 2:14 PM CDT Postmenopausal from Last 3 Months or Most Recently Relevant to Health Maintenance Results * XR SPINE LUMBAR 3 VIEWS (07/19/2024 10:03 AM PRIVACY ANALYST) Anatomical Region Laterality Modality LUMBAR SPINE Computed Radiogr aphy 07/19/2024 4:15 PM PRIVACY ANALYST Impressions 07/19/2024 4:15 PM PRIVACY ANALYST Lower lumbar spine degenerative facet arthropathy particularly on the right. Left-sided bridging osteophyte formation at L4-5. Dictated by Dash Baltazar MD @ 07/19/2024 4:15:29 PM (Electronically Signed) Narrative 07/19/2024 4:15 PM PRIVACY ANALYST For Patients: As a result of the [...] STL-IMP Negative Negative 10/31/2023 9:02 AM CDT [facility] (CLIA #:[id number]) Comment: NEGATIVE TEST RESULT. A negative Cologuard [...] Putnam et al, N Engl J Med 2014;370(14):9974-7119) The normal value (reference range) for this assay is negative. COLOGUARD RE-SCREENING RECOMMENDATION: Periodic colorectal cancer screening is an important part of preventive healthcare for asymptomatic individuals at average risk for colorectal cancer. Following a negative Cologuard result, the [place] Cancer Society and U.S. Multi-Society Task Force screening guidelines recommend a Cologuard re-screening interval of 3 years. References: [place] Cancer Society Guideline for Colorectal Cancer Screening: https://www.cancer.org/cancer/dgxzq-wzrlii-lrrxjs/oouohakcj-yjnuxavmt-lpurjhd/ac s-rec ommendations.html.; Fito DEJESUS, Tia OLIVAREZ, Jerad PEREIRA, Colorectal Cancer Screening: Recommendations for Physicians and Patients from the U.S. Multi-Society Task Force on Colorectal Cancer Screening , Am J Gastroenterology 2017; 112:8504-0437. TEST DESCRIPTION: Composite algorithmic analysis of stool [...] Reaves. et al, N Engl J Med 2014;370(14):7816-8720.) Cologuard may produce a false negative or false positive result (no colorectal cancer or precancerous polyp present at colonoscopy follow up). A negative Cologuard test result does not guarantee the absence of CRC or advanced adenoma (pre-cancer). The current Cologuard screening interval is every 3 years. ([place] Cancer Society and U.S. Multi-Society Task Force). Cologuard performance data in a 10,000 patient pivotal study using colonoscopy as the reference method can be accessed at the following location: www.SignNow/results. Additional description of the Cologuard test process, warnings and precautions can be found at www.cologuard.com. Stool specimen (specimen) (Rectum) 10/25/2023 9:30 AM CDT 10/26/2023 1:54 PM CDT Patty Mayo MD URINE Final Result [facility] (CLIA #:[id number]) [address] [place] [address], * (ABNORMAL) LIPID PANEL W REFLEX MEASURED LDL (06/30/2023 2:13 PM PRIVACY ANALYST) CHOLESTEROL,TOTAL 158 100 - 199 mg/dL 06/30/2023 10:07 PM [facility] Comment: Cholesterol, Total Reference Ranges Desirable <200 mg/dL Borderline 200-239 mg/dL High >=240 mg/dL TRIGLYCERIDES 306(H) <150 mg/dL 06/30/2023 10:07 PM [facility] HDL CHOLESTEROL 33(L) >40 mg/dL 10:07 PM PRIVACY ANALYST [facility] NON-HDL CHOLESTEROL 125 <145 mg/dl 06/30/2023 10:07 PM [facility] CHOL/HDL RATIO 4.79(H) <4.50 06/30/2023 10:07 PM PRIVACY ANALYST [facility] LDL CHOLESTEROL 64 <=130 mg/dL 06/30/2023 10:07 PM [facility] VLDL CHOLESTEROL 61(H) <=30 mg/dL 06/30/2023 10:07 PM PRIVACY ANALYST [facility] PROVIDER ORDERED STATUS RANDOM 06/30/2023 10:07 PM [facility] Blood BLOOD SPECIMEN / Unknown Venipuncture / Unknown 06/30/2023 2:13 PM PRIVACY ANALYST 06/30/2023 2:15 PM PRIVACY ANALYST Patty Mayo MD CHEMISTRY Final Result [facility] [address] [place] [address], [place] * ANTI HCV [16903.2] (03/14/2017 12:20 PM CDT) HEPATITIS C ANTIBODY Non-Reacti ve Non-Reacti ve 03/14/2017 4:24 PM CDT [facility] Blood BLOOD SPECIMEN / Unknown Venipuncture / Unknown 03/14/2017 12:20 PM CDT 03/14/2017 12:20 PM CDT Narrative [facility] - 03/14/2017 4:24 PM CDT Antibodies to HCV not detected; does not exclude the possibility of exposure to HCV. Patty Mayo MD SEND OUTS Final Result Performing Organization Address City/[facility]/ZIP Co de Phone Number [facility] [address] [place] [address], [place] * (ABNORMAL) XR DXA BONE DENSITY 2 SITES (02/26/2015 2:14 PM CDT) Anatomical Region Laterality Modality Spine, HIPS, HIPL, HIPR Other Narrative 03/04/2015 8:28 AM CDT Please see scanned document for results of this study. Patty Mayo MD DEXA Final Result from Last 3 Months or Most Recently Relevant to Health Maintenance Insurance MEDICARE PART A HB ONLY [employer] MR Advance Directives * Full Code [...] 7:00 AM 07/06/2012 2:12 PM Care Teams Forklift Picker Relationship Specialty Start Date End Date Patty Mayo MD [address] [place] [address] PCP - General 11/06/05
[2024-08-28] MEDS: 0.9 % SODIUM CHLORIDE 500 ML 500 ML IV (19:44)
[2024-08-28] MEDS: ACETAMINOPHEN 500 MG TABLET 1000 MG PO (20:57)
[2024-08-28] MEDS: OSELTAMIVIR 30 MG CAPSULE PO (21:03)
--- NOTE | 2024-08-28 21:06 | PM.IMHP1 ---
Hospitalist- H&P: HPI History of Present Illness Date Seen: 08/28/24 Chief complaint: Vomit/diarrhea Narrative: Jj Stover is a 74 year old female past medical history significant for hypertension, mitral regurgitation, hypothyroidism, hyperlipidemia, adjustment disorder with depressed mood is admitted to the medical floor from the ED for further management nausea, vomiting, diarrhea and increasing weakness in setting of acute viral influenza a. Patient was brought from her home in [place] via EMS with 2 day history of nausea, vomiting and diarrhea. Awoke yesterday morning not feeling well. Has had 3-4 loose stools today. Subjective fevers and chills yesterday. Onset of abdominal pain radiating into her back with coughing started 1 hour prior to calling EMS today. Abdominal pain essentially resolved now. Cough is dry and congested. Complains of generalized body aches and myalgias. Increasing weakness. Reports decreased oral intake and appetite. Nonsmoker. Occasional alcohol use. Still employed at [place] [employer]. PCP is Dr. Mayo. Review of Systems Narrative: REVIEW OF SYSTEMS: Complete review of systems performed and negative unless otherwise stated in HPI or below. [facility] Medical History Adjustment disorder with depressed mood ?F43.21 - Adjustment disorder with depressed mood (ICD-10) Hyperlipidemia ?E78.5 - Hyperlipidemia, unspecified (ICD-10) Hypothyroidism ?E03.9 - Hypothyroidism, unspecified (ICD-10) Mitral regurgitation ?I34.0 - Nonrheumatic mitral (valve) insufficiency (ICD-10) Hypertension ?I10 - Essential (primary) hypertension (ICD-10) Social History Smoking Status: Never smoker Do you use any of these nicotine containing products: None How often do you have a drink containing alcohol: never AUDIT-C Alcohol total score: 0 Meds Home Medications and Allergies Home Medications ?Medication ?Instructions ?Recorded ?Confirmed ?Type atorvastatin 40 mg tablet 40 mg PO HS 07/01/22 08/28/24 History levothyroxine 100 mcg tablet 100 mcg PO DAILY 07/01/22 08/28/24 History losartan 50 mg-hydrochlorothiazide 1 tab PO DAILY 07/01/22 08/28/24 History 12.5 mg tablet timolol maleate 0.5 % eye drops 1 drp ophthalmic (eye) Q12H 07/01/22 07/01/22 History levothyroxine 75 mcg tablet 75 mcg PO QAM 08/28/24 08/28/24 History oxybutynin chloride 10 mg 10 mg PO DAILY 08/28/24 08/28/24 History tablet,extended release 24 hr sertraline 100 mg tablet 100 mg PO QAM 08/28/24 08/28/24 History Allergies Allergy/AdvReac Type Severity Reaction Status Date / Time lisinopril Allergy Mild Verified 08/28/24 18:06 morphine Allergy Mild Hives Verified 08/28/24 18:06 wool Allergy Mild Rash Verified 08/28/24 18:06 pollen extracts Allergy Unknown Verified 08/28/24 18:06 Exam Narrative: Exam Narrative: PHYSICAL EXAM General: Pleasant, conversant, NAD HEENT: Normocephalic, atraumatic, sclera white, EOMI, oral mucosa moist Cardiovascular: RRR, S1S2. No pitting edema Pulmonary: CTA bilaterally without rhonchi, rales, expiratory wheezes. No dyspnea on room air Abdominal: Soft, nondistended, NTTP currently, no guarding Neurological: Alert, answering questions appropriately, cranial nerves intact, no focal findings Extremities: No gross joint deformity or swelling. AROMI. Neurovascularly intact Skin: Warm, dry. Const: Vital Signs, click to edit/add: Vital Signs - 24 hr 08/28/24 18:03 08/28/24 18:30 Temperature 96.8 F L Pulse Rate [Pulse Oximeter] 66 Respiratory Rate 18 Blood Pressure [Ri ght Upper Arm] 161/99 H Pulse Oximetry 95 96 Oxygen Delivery Me thod Room Air Hospitalist - H&P: Result Labs Labs: Short CBC 08/28/24 Range/Units 18:50 WBC 6.71 (4.50-11.00) K/uL Hgb 13.4 (12.0-16.0) gm/dL Hct 40.0 (33.0-51.0) % Plt Count 251 (140-440) K/uL BMP 08/28/24 18:50 Sodium 133 L Potassium 3.1 L Chloride 99 Carbon Dioxide 24 BUN 12 Creatinine 0.7 Glucose 139 H Calcium 8.7 Cardiac Enzymes 02/05/25 Range/Units 18:50 Troponin I < 0.01 L (0.01-0.04) ng/mL Liver Function 08/28/24 Range/Units 18:50 Total Bilirubin 1.4 (0.1-1.5) mg/dL AST 34 (12-35) U/L ALT 29 (4-35) U/L Alkaline Phosphatase 95 (40-150) U/L Albumin 4.0 (3.3-5.0) g/dL Urine 08/28/24 Range/Units 18:51 Urine Color Yellow (Yellow) Urine Appearance Clear (Clear) Urine pH 6.5 (5.0-8.5) Ur Specific [place] 1.015 (1.000-1.030) Urine Protein 1+ A (Negative) Urine Glucose (UA) Negative (Negative) Imaging Chest x-ray: Attestation: I have reviewed the pertinent imaging results. Radiologist's impression: Lung volumes are good. No focal or diffuse opacities. No pleural effusion. No pneumothorax. Heart size is normal. Atherosclerotic vascular calcifications. IMPRESSION: Lungs clear. No acute findings. CT abdomen pelvis: Attestation: I have reviewed the pertinent imaging results. Radiologist's impression: Lower chest: Unremarkable. Liver: Non cirrhotic morphology. Moderate diffuse steatosis. No suspicious focal mass. Gallbladder and bile ducts: Cholelithiasis. No gallbladder wall thickening or pericholecystic inflammation. Pancreas: Unremarkable. Spleen: Normal size and appearance. Adrenal glands: Nodular thickening left adrenal gland to 6 mm (series 2, image 40). Normal right adrenal gland. Kidneys: Symmetric enhancement. No nephrolithiasis or hydronephrosis. 6.5 cm right posterior interpolar renal simple cyst. GI tract: Normal caliber and wall thickness. No significant associated inflammatory change. Sigmoid diverticulosis. 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 No bowel obstruction. Appendix not visualized. Vasculature: Abdominal aorta is normal in caliber. Mesenteric arteries are patent. Lymph nodes: No lymphadenopathy. Peritoneum/Abdominal Wall: Unremarkable. No sign of mass or infiltration. No free air or significant free fluid. Pelvis: Hysterectomy. Partial urinary bladder distention with wall thickening likely related to underdistention. Rectal and vaginal prolapse extending inferiorly out of the field of view. Bones: Mild degenerative changes of the imaged spine. No aggressive osseous lesions. IMPRESSION: 1. No acute obstructive or inflammatory process within the abdomen or pelvis. 2. 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 No evidence of bowel obstruction. 3. Pelvic floor rectal and vaginal prolapse. 4. Other incidental findings as detailed above. Assessment and Plan Assessment and plan (1) Abdominal pain: Problem comment: -CT without evidence of acute obstructive or inflammatory process. Morgagni hernia noted, no evidence of bowel obstruction. Cholelithiasis, no gallbladder wall thickening or pericholecystic inflammation. No nephrolithiasis or hydronephrosis -LFTs unremarkable. 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 No evidence of bowel obstruction -general surgery consulted Status: Acute (4) Influenza A: Problem comment: -positive test 08/28/2024 -Tamiflu, renally dosed, 30 mg b.i.d. times 10 doses, monitor kidney function -symptomatic cares -precautions Status: Acute (5) Hyponatremia: Problem comment: -mild, likely in setting of acute viral illness, vomiting/diarrhea -Na 133 -hold losartan/HCTZ -receiving IVF, recheck in am Status: Acute (6) Hypokalemia: Problem comment: -potassium 3.1 -continue NS with potassium rider, as started in ED, as has been nauseous with vomiting -recheck in a.m. Status: Acute (7) Hypertension: Problem comment: -hold losartan/HCTZ in setting of mild hyponatremia -losartan potassium 50 mg daily Status: Acute (8) Hypothyroidism: Problem comment: -continue levothyroxine Status: Acute (9) Hyperlipidemia: Problem comment: -continue statin Status: Acute Total Time Spent Total Time Spent: Total time spent caring for the patient today was 75 minutes. This includes time spent for the visit reviewing the chart, time spent during the visit, time spent after the visit and documentation and planning in coordination of care.
[2024-08-28 21:44] LABS: Magnesium* 2.1 mg/dL (1.5-2.6)
[2024-08-28] MEDS: 0.9 % SODIUM CH + KCL 20 mEq/L 1,000 ML 75 ML IV (22:16)
[2024-08-28] MEDS: ONDANSETRON 2 MG/ML inj 4 MG IVP (22:17)
[2024-08-28] MEDS: ENOXAPARIN 40 MG/0.4 ML INJ SUBCUT (22:18)
[2024-08-28] MEDS: ATORVASTATIN CALCIUM 40 MG TABLET PO (22:19)
[2024-08-28] MEDS: guaiFENesin 600 MG TAB.ER.12H 1200 MG PO (22:19)
[2024-08-28] MEDS: MELATONIN 3 MG TABLET PO (22:19)
[2024-08-28] MEDS: SODIUM CHLORIDE 0.9 % (FLUSH) 10 ML SYRINGE 5 ML IVF (22:28)
[2024-08-28] MEDS: timoloL maleate 0.5 % 1 DROP EYE-BOTH (22:29)
[2024-08-29] VITALS (9 sets, daily range): BP systolic 86–132; BP diastolic 49–82; PULSE 67–87; RESP 16–20; TEMP 36.7–37.3; O2SAT 93–96
[2024-08-29] MEDS: LEVOTHYROXINE 75 MCG TABLET PO (05:02)
--- NOTE | 2024-08-29 05:55 | PC.NURSE ---
Pt admitted to floor last evening for Influenza A. Nausea controlled with Zofran. Afebrile. No Emesis. No BM. Pt up IND in room and voiding. Pleasant and cooperative. Oriented x3. 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
[2024-08-29 07:04] LABS: Hematocrit 39.3 % (33.0-51.0); Hemoglobin* 13.2 gm/dL (12.0-16.0); Mean Corpuscular HGB Conc 34 gm/dL (32-36); Mean Corpuscular Hemoglobin 31 pg (26-34); Mean Corpuscular Volume 91 fL (80-100); Platelet Count* 241 K/uL (140-440); Red Blood Count 4.32 m/uL (4.00-5.20)
[2024-08-29 07:07] LABS: Slide Review Reflex No
[2024-08-29 07:21] LABS: Chloride* 102 mmol/L (96-114)
[2024-08-29 07:22] LABS: Potassium* 3.2 mmol/L (3.6-5.1); Sodium* 133 mmol/L (135-149)
[2024-08-29 07:24] LABS: Anion Gap 6 mEq/L (7-15); Carbon Dioxide* 25 mmol/L (20-32); Creatinine* 0.6 mg/dL (0.5-1.5); Est. Creatinine Clearance* 38.44; Estimated Glomerular Filt Rate 94 ml/min
[2024-08-29 07:25] LABS: Blood Urea Nitrogen* 10 mg/dL (7-30); Calcium* 8.4 mg/dL (8.4-10.6); Glucose* 99 mg/dL (60-115)
[2024-08-29] MEDS: POTASSIUM CHLORIDE 10 MEQ CAPSULE ER 40 MEQ PO (09:29)
[2024-08-29] MEDS: OSELTAMIVIR 30 MG CAPSULE PO ×2 (09:29→20:37)
[2024-08-29] MEDS: oxyBUTYnin chloride 5 MG TAB.ER.24 10 MG PO (09:30)
[2024-08-29] MEDS: SERTRALINE 100 MG TABLET PO (09:30)
[2024-08-29] MEDS: guaiFENesin 600 MG TAB.ER.12H 1200 MG PO ×2 (09:30→20:37)
[2024-08-29] MEDS: LOSARTAN POTASSIUM 50 MG TABLET PO (09:30)
[2024-08-29] MEDS: SODIUM CHLORIDE 0.9 % (FLUSH) 10 ML SYRINGE 5 ML IVF ×2 (09:31→20:38)
[2024-08-29] MEDS: timoloL maleate 0.5 % 1 DROP EYE-BOTH ×2 (09:31→20:38)
[2024-08-29] MEDS: 0.9 % SODIUM CHLORIDE 500 ML 500 ML IV (11:21)
[2024-08-29 11:35] LABS: C.Difficile Negative (Negative); CDIFFEPI 027 PRESUMPTIVE NEGATIVE (Negative)
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
--- NOTE | 2024-08-29 15:38 | PM.IMPN1 ---
Progress Note: A&P Assessment and plan (1) Viral gastroenteritis: Problem details: -Improving pain -Flu A +ve -CT without evidence of acute obstructive or inflammatory process. Morgagni hernia noted, no evidence of bowel obstruction. Cholelithiasis, no gallbladder wall thickening or pericholecystic inflammation. No nephrolithiasis or hydronephrosis -LFTs unremarkable. UA rather unremarkable, UC pending -gentle IVF hydration -pain and nausea management as needed -C diff -ve -low dose imodium prn Status: Acute (2) Influenza A: Problem details: -positive test 08/28/2024 -Tamiflu, renally dosed, 30 mg b.i.d. 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 No evidence of bowel obstruction -general surgery consulted Status: Acute (4) Hyponatremia: Problem details: -mild, likely in setting of acute viral illness, vomiting/diarrhea -Na 133 -hold losartan/HCTZ -receiving IVF, recheck in am Status: Acute (5) Hypokalemia: Problem details: -potassium 3.1 -continue NS with potassium rider, as started in ED, as has been nauseous with vomiting -recheck in a.m. Status: Acute (6) Hypertension: Problem details: -hold losartan/HCTZ in setting of mild hyponatremia -losartan potassium 50 mg daily Status: Acute (7) Hypothyroidism: Problem details: -continue levothyroxine Status: Acute (8) Hyperlipidemia: Problem details: -continue statin Status: Acute (9) Tachycardia: Problem details: -08/29 am: Pt had a brief time of sinus tachycardia (w/ dropped beats) HR 120s-140s that resolved after a 500 cc ivf bolus. Status: Acute Time Spent With Patient Total time spent: Today I spent 50 minutes seeing the patient, reviewing Expanse and EPIC notes/diagnostics, discussing the care plan with our care time that includes social work, PT/OT, pharmacy, RT, half-way and documenting my impressions and plan in the medical record. Subjective Date Seen: 08/29/24 Interval history: Pt seen and examined at bedside. Nausea controlled w/ antiemetics, no vomiting. Still w/ diarrhea. C-diff -ve. Pt had a brief time of sinus tachycardia (w/ dropped beats) HR 120s-140s that resolved after a 500 cc ivf bolus. Exam Narrative: Exam Narrative: Physical exam GENERAL: Comfortable, no acute distress. HEAD AND NECK: Atraumatic, normocephalic CARDIOVASCULAR: RRR. Normal S1, S2. No murmurs. RESPIRATORY: Clear to auscultation B/L. Good air entry B/L. No wheezes or rhonchi. GASTROINTESTINAL: Not distended, not tender to palpation. NEUROLOGY: Alert, awake, oriented X 3. Normal speech. PSYCH: Normal mood, normal affect. Const: Vital Signs, click to edit/add: Vital Signs - 24 hr 08/28/24 18:03 08/28/24 18:30 08/28/24 21:42 Temperature 96.8 F L Pulse Rate Pulse Rate [Left R adial] Pulse Rate [Pulse Oximeter] 66 Respiratory Rate 18 16 Blood Pressure [Le ft Arm] Blood Pressure [Ri ght Arm] Blood Pressure [Ri ght Upper Arm] 161/99 H Pulse Oximetry 95 96 [facility] 08/28/24 21:43 08/28/24 21:45 08/28/24 21:56 Temperature 98 F 98 F Pulse Rate Pulse Rate [Left R adial] 75 75 Pulse Rate [Pulse Oximeter] Respiratory Rate 16 16 16 Blood Pressure [Le ft Arm] Blood Pressure [Ri ght Arm] 143/91 H 143/91 H Blood Pressure [Ri ght Upper Arm] Pulse Oximetry 95 95 95 [facility] Room [facility] Room Air 08/28/24 22:06 08/28/24 22:35 08/28/24 23:44 Temperature 98 F Pulse Rate 65 Pulse Rate [Left R adial] 75 Pulse Rate [Pulse Oximeter] Respiratory Rate 16 Blood Pressure [Le ft Arm] Blood Pressure [Ri ght Arm] Blood Pressure [Ri ght Upper Arm] Pulse Oximetry Oxygen Delivery Dc thod 08/29/24 02:30 08/29/24 07:00 08/29/24 07:00 Temperature 98.1 F 98.5 F Pulse Rate 75 Pulse Rate [Left R adial] 76 77 Pulse Rate [Pulse Oximeter] Respiratory Rate 16 16 Blood Pressure [Le ft Arm] Blood Pressure [Ri ght Arm] 122/81 132/82 Blood Pressure [Ri ght Upper Arm] Pulse Oximetry 96 93 Oxygen Delivery Me thod Room Air Room Air 08/29/24 11:00 08/29/24 12:15 08/29/24 15:00 Temperature 98.1 F Pulse Rate 69 Pulse Rate [Left R adial] 87 Pulse Rate [Pulse Oximeter] Respiratory Rate 16 Blood Pressure [Le ft Arm] 86/49 L 101/63 Blood Pressure [Ri ght Arm] 95/66 105/71 Blood Pressure [Ri ght Upper Arm] Pulse Oximetry 93 Oxygen Delivery Me thod Room Air Labs Labs: Laboratory Results - last 24 hr 08/28/24 08/28/24 08/28/24 18:14 18:40 18:50 WBC 6.71 RBC 4.44 Hgb 13.4 Hct 40.0 MCV 90 MCH 30 MCHC 34 RDW Coeff of Jamil 13.0 Plt Count 251 Neut % (Auto) 64.9 Lymph % (Auto) 20.6 [place] % (Auto) 14.2 H Eos % (Auto) 0.1 Baso % (Auto) 0.1 Neut # (Auto) 4.35 Lymph # (Auto) 1.38 [place] # (Auto) 1.00 H Eos # (Auto) 0.01 Baso # (Auto) 0.01 Abs Immat Gran (auto) 0.01 Imm/Tot Granulo (auto) 0.1 Sodium 133 L Potassium 3.1 L Chloride 99 Carbon Dioxide 24 Anion Gap 10 BUN 12 Creatinine 0.7 Estimated Creat Clear 38.44 Estimated GFR 90 Glucose 139 H Lactate 1.5 Calcium 8.7 Magnesium 2.1 Total Bilirubin 1.4 AST 34 ALT 29 Alkaline Phosphatase 95 Troponin I < 0.01 L C-Reactive Protein 0.8 NT-Pro-B Natriuret Pep 333 Total Protein 6.8 Albumin 4.0 Urine Color Urine Appearance Urine pH Ur Specific [place] Urine Protein Urine Glucose (UA) Urine Ketones Urine Blood Urine Nitrite Urine Bilirubin Urine Urobilinogen Ur Leukocyte Esterase Urine RBC Urine WBC Ur Squamous Epith Cells Urine Bacteria Stl C. diff Tox B Gene Stl C. diff 027-NAP1-BI SARS-CoV-2 (PCR) Negative SARS-CoV-2 Influenza Type A (PCR) POSITIVE PCR FLU A A Influenza Type B (PCR) Negative PCR FLU B RSV (PCR) Negative PCR RSV Lab Acknowledgement POC Creatinine 0.8 08/28/24 08/28/24 08/28/24 18:51 21:12 21:36 WBC RBC Hgb Hct MCV MCH MCHC RDW Coeff of Jamil Plt Count Neut % (Auto) Lymph % (Auto) [place] % (Auto) Eos % (Auto) Baso % (Auto) Neut # (Auto) Lymph # (Auto) [place] # (Auto) Eos # (Auto) Baso # (Auto) Abs Immat Gran (auto) Imm/Tot Granulo (auto) Sodium Potassium Chloride Carbon Dioxide Anion Gap BUN Creatinine Estimated Creat Clear Estimated GFR Glucose Lactate Calcium Magnesium Total Bilirubin AST ALT Alkaline Phosphatase Troponin I C-Reactive Protein NT-Pro-B Natriuret Pep Total Protein Albumin Urine Color Yellow Urine Appearance Clear Urine pH 6.5 Ur Specific [place] 1.015 Urine Protein 1+ A Urine Glucose (UA) Negative Urine Ketones 2+ A Urine Blood 1+ A Urine Nitrite Negative Urine Bilirubin Negative Urine Urobilinogen 0.2 Ur Leukocyte Esterase Negative Urine RBC 2-5 A Urine WBC 0-2 Ur Squamous Epith Cells None Urine Bacteria Few A Stl C. diff Tox B Gene Negative Stl C. diff 027-NAP1-BI PRESUMPTIVE NEGATIVE SARS-CoV-2 (PCR) Influenza Type A (PCR) Influenza Type B (PCR) RSV (PCR) Lab Acknowledgement Test Added POC Creatinine 08/29/24 06:38 WBC 7.40 RBC 4.32 Hgb 13.2 Hct 39.3 MCV 91 MCH 31 MCHC 34 RDW Coeff of Jamil Plt Count 241 Neut % (Auto) Lymph % (Auto) [place] % (Auto) Eos % (Auto) Baso % (Auto) Neut # (Auto) Lymph # (Auto) [place] # (Auto) Eos # (Auto) Baso # (Auto) Abs Immat Gran (auto) Imm/Tot Granulo (auto) Sodium 133 L Potassium 3.2 L Chloride 102 Carbon Dioxide 25 Anion Gap 6 L BUN 10 Creatinine 0.6 Estimated Creat Clear 38.44 Estimated GFR 94 Glucose 99 Lactate Calcium 8.4 Magnesium Total Bilirubin AST ALT Alkaline Phosphatase Troponin I C-Reactive Protein NT-Pro-B Natriuret Pep Total Protein Albumin Urine Color Urine Appearance Urine pH Ur Specific [place] Urine Protein Urine Glucose (UA) Urine Ketones Urine Blood Urine Nitrite Urine Bilirubin Urine Urobilinogen Ur Leukocyte Esterase Urine RBC Urine WBC Ur Squamous Epith Cells Urine Bacteria Stl C. diff Tox B Gene Stl C. diff 027-NAP1-BI SARS-CoV-2 (PCR) Influenza Type A (PCR) Influenza Type B (PCR) RSV (PCR) Lab Acknowledgement POC Creatinine ECG Attestation: I personally reviewed and interpreted this ECG as follows: Interpretation: sinus tachycardia (w/ dropped beats) HR 120s-140s
[2024-08-29] MEDS: LOPERAMIDE HCL 2 MG CAPSULE PO (16:12)
--- NOTE | 2024-08-29 16:53 | PC.NURSE ---
patient alert and oriented, pleasant and cooperative, patient expressed feeling tired out, up to the bathroom per nursing handoff today for some diarrhea, PRN Imodium given per patient request and MD order, tolerating powerade and water but patient reporting decreased appetite, reporting abdominal cramping. occasional coughing noted, declining nausea.
[2024-08-29] MEDS: ENOXAPARIN 40 MG/0.4 ML INJ SUBCUT (20:37)
[2024-08-29] MEDS: ATORVASTATIN CALCIUM 40 MG TABLET PO (20:37)
[2024-08-30] VITALS: BP 111/76; PULSE 71; RESP 20; O2SAT 93
[2024-08-30 04:00] VITALS: PULSE 66; RESP 20
[2024-08-30] MEDS: LEVOTHYROXINE 75 MCG TABLET PO (06:22)
[2024-08-30 06:31] LABS: Hematocrit 37.1 % (33.0-51.0); Hemoglobin* 12.3 gm/dL (12.0-16.0); Mean Corpuscular HGB Conc 33 gm/dL (32-36); Mean Corpuscular Hemoglobin 30 pg (26-34); Mean Corpuscular Volume 92 fL (80-100); Platelet Count* 236 K/uL (140-440); Red Blood Count 4.05 m/uL (4.00-5.20); White Blood Count* 5.79 K/uL (4.50-11.00)
[2024-08-30 06:33] LABS: Slide Review Reflex No
[2024-08-30 06:34] LABS: Chloride* 106 mmol/L (96-114); Potassium* 3.3 mmol/L (3.6-5.1); Sodium* 134 mmol/L (135-149)
[2024-08-30 06:37] LABS: Anion Gap 4 mEq/L (7-15); Blood Urea Nitrogen* 9 mg/dL (7-30); Calcium* 8.3 mg/dL (8.4-10.6); Carbon Dioxide* 24 mmol/L (20-32); Creatinine* 0.8 mg/dL (0.5-1.5); Est. Creatinine Clearance* 38.44; Estimated Glomerular Filt Rate 77 ml/min; Glucose* 96 mg/dL (60-115)
--- NOTE | 2024-08-30 06:48 | PC.NURSE ---
19-07: pleasant and cooperative. Indep in room. Calls appropriately. Reports feeling ?tired?. Audible wheeze, encouraging deep breathing exercises.
[2024-08-30 08:29] VITALS: BP 111/77; PULSE 69; RESP 16; TEMP 36.6; O2SAT 90
[2024-08-30] MEDS: POTASSIUM CHLORIDE 10 MEQ CAPSULE ER 40 MEQ PO (08:33)
[2024-08-30] MEDS: LOSARTAN POTASSIUM 50 MG TABLET PO (08:34)
[2024-08-30] MEDS: oxyBUTYnin chloride 5 MG TAB.ER.24 10 MG PO (08:34)
[2024-08-30] MEDS: guaiFENesin 600 MG TAB.ER.12H 1200 MG PO (08:34)
[2024-08-30] MEDS: SODIUM CHLORIDE 0.9 % (FLUSH) 10 ML SYRINGE 5 ML IVF (08:35)
[2024-08-30] MEDS: OSELTAMIVIR 30 MG CAPSULE PO (08:35)
[2024-08-30] MEDS: SERTRALINE 100 MG TABLET PO (08:35)
[2024-08-30] MEDS: timoloL maleate 0.5 % 1 DROP EYE-BOTH (08:37)
[2024-08-30 08:48] VITALS: PULSE 63
[2024-08-30 11:15] VITALS: BP 108/62; PULSE 74; RESP 16; TEMP 36.6; O2SAT 95
--- NOTE | 2024-08-30 12:26 | P.DS_ITS ---
DS: Providers Provider Date Seen: 08/30/24 Date of admission: 08/28/24 21:21 Primary care physician: Patty Mayo MD Admitting Clinician: Natalia Francois MD Consults: 08/28/24 21:12 Consult to Occupational Therapy [CONS] Routine Comment: Reason(s) for OT Consult:: Evaluate and Treat Any Restrictions?:: No Restrictions Consult to Physical Therapy [CONS] Routine Comment: Reason(s) for PT Consult:: Evaluate and Treat Any Restrictions?:: No Restrictions Consult to Respiratory Therapy [CONS] Routine Comment: Reason(s) for RT Consult:: Consult Attending Physician on discharge: Jenni An MD DS: Diagnosis Discharge Diagnosis (1) Viral gastroenteritis: Status: Acute Problem details: -Improved -Flu A +ve -CT without evidence of acute obstructive or inflammatory process. Morgagni hernia noted, no evidence of bowel obstruction. Cholelithiasis, no gallbladder wall thickening or pericholecystic inflammation. No nephrolithiasis or hydronephrosis -LFTs unremarkable. UA rather unremarkable, UC pending -gentle IVF hydration -pain and nausea management as needed -C diff -ve -low dose imodium prn (2) Influenza A: Status: Acute Problem details: -positive test 08/28/2024 -Tamiflu, renally dosed, 30 mg b.i.d. 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 No evidence of bowel obstruction -general surgery consulted (4) Hyponatremia: Status: Acute Problem details: -mild, likely in setting of acute viral illness, vomiting/diarrhea -Na 133 -hold losartan/HCTZ -receiving IVF, recheck in am (5) Hypokalemia: Status: Acute Problem details: -potassium 3.1 -continue NS with potassium rider, as started in ED, as has been nauseous with vomiting -recheck in a.m. (6) Hypertension: Status: Acute Problem details: -hold losartan/HCTZ in setting of mild hyponatremia -losartan potassium 50 mg daily (7) Hypothyroidism: Status: Acute Problem details: -continue levothyroxine (8) Hyperlipidemia: Status: Acute Problem details: -continue statin (9) Tachycardia: Status: Acute Problem details: -08/29 am: Pt had a brief time of sinus tachycardia (w/ dropped beats) HR 120s- 140s that resolved after a 500 cc ivf bolus. DS: Summary Hospital Course Hospital Course: Pt presented w/ N/V, diarrhea, and found to be Flu A +ve. CT without evidence of acute obstructive or inflammatory process. Morgagni hernia noted, no evidence of bowel obstruction. Cholelithiasis, no gallbladder wall thickening or pericholecystic inflammation. No nephrolithiasis or hydronephrosis. C diff -ve. Pt improved and id DCed home. Time Spent with Patient Time attestation: Total time spent providing and/or coordinating discharge services: Exam Narrative: Exam Narrative: Physical exam GENERAL: Comfortable, no acute distress. HEAD AND NECK: Atraumatic, normocephalic CARDIOVASCULAR: RRR. Normal S1, S2. No murmurs. RESPIRATORY: Clear to auscultation B/L. Good air entry B/L. No wheezes or rhonchi. GASTROINTESTINAL: Not distended, not tender to palpation. NEUROLOGY: Alert, awake, oriented X 3. Normal speech. PSYCH: Normal mood, normal affect. Const: Vital Signs, click to edit/add: Vital Signs - 24 hr 08/29/24 15:00 08/29/24 16:00 08/29/24 20:00 Temperature 98.1 F 99.2 F Pulse Rate 69 Pulse Rate [Left R adial] 74 73 Pulse Rate [Pulse Oximeter] Respiratory Rate 16 20 Blood Pressure [Le ft Arm] Blood Pressure [Ri ght Arm] 95/68 102/69 Pulse Oximetry 94 93 Oxygen Delivery Me thod Room Air Room Air 08/29/24 23:00 08/29/24 23:42 08/30/24 00:00 Temperature Pulse Rate 67 Pulse Rate [Left R adial] Pulse Rate [Pulse Oximeter] 71 Respiratory Rate 20 20 Blood Pressure [Le ft Arm] Blood Pressure [Ri ght Arm] 111/76 Pulse Oximetry 93 Oxygen Delivery Me thod Room Air 08/30/24 04:00 08/30/24 08:29 08/30/24 08:29 Temperature 98 F Pulse Rate Pulse Rate [Left R adial] Pulse Rate [Pulse Oximeter] 66 69 Respiratory Rate 20 16 16 Blood Pressure [Le ft Arm] Blood Pressure [Ri ght Arm] 111/77 Pulse Oximetry 90 Oxygen Delivery Me thod Room Air 08/30/24 08:48 08/30/24 11:15 Temperature 97.9 F Pulse Rate 63 Pulse Rate [Left R adial] Pulse Rate [Pulse Oximeter] 74 Respiratory Rate 16 Blood Pressure [Le ft Arm] 108/62 Blood Pressure [Ri ght Arm] Pulse Oximetry 95 Oxygen Delivery Me thod Room Air DS: Data Data Completed and Pending Labs on day of discharge: Labs from last 24 hours 08/30/24 06:02 WBC 5.79 RBC 4.05 Hgb 12.3 Hct 37.1 MCV 92 MCH 30 MCHC 33 Plt Count 236 Sodium 134 L Potassium 3.3 L Chloride 106 Carbon Dioxide 24 Anion Gap 4 L BUN 9 Creatinine 0.8 Estimated Creat Clear 38.44 Estimated GFR 77 Glucose 96 Calcium 8.3 L Discharge Plan Discharge Disposition: Home, Self-Care Date of Admission: 08/28/24 21:21 Attending Provider on Discharge: eJnni An Primary Care Provider: Patty Mayo Condition: Improved Anticipated Discharge Date/Time: 08/30/24 12:17 Discharge Medications: New loperamide 2 mg Capsule 2 mg PO Q8H PRN2 Days Qty: 6 0RF oseltamivir [Tamiflu] 30 mg Capsule 30 mg PO BID 3 Days Qty: 6 0RF guaifenesin [Mucinex] 600 mg Tablet Extended Release 12hr 1,200 mg PO BID 3 Days Qty: 12 0RF potassium chloride 10 mEq capsule, extended release 10 meq PO DAILY Qty: 5 0RF Continued oxybutynin chloride 10 mg tablet extended release 24hr 10 mg PO DAILY sertraline 100 mg tablet 100 mg PO QAM levothyroxine 75 mcg tablet 75 mcg PO QAM celecoxib 200 mg capsule 200 mg PO DAILY PRN (Reason: joint pain) atorvastatin 40 mg tablet 40 mg PO HS losartan-hydrochlorothiazide 50-12.5 mg tablet 1 tab PO DAILY timolol maleate 0.5 % drops 1 drp ophthalmic (eye) Q12H Patient Comments: INSTILL 1 DROP INTO BOTH EYES TWICE A DAY DIRECTED Discharge Orders: Discharge Order (Routine); Ordered 08/30/24 Ordered By: Jenni An Patient Education: Loperamide (By mouth), Potassium Chloride (By mouth), Guaifenesin (By mouth), Oseltamivir (By mouth), Influenza (IP) Additional Instructions: You need to follow-up with your primary care physician within 1-2 weeks You need to complete your Tamiflu medication course Activity Level: Activity as Tolerated Discharge Diet: Low Fat/Low Cholesterol Follow Up Appointments: Patty Mayo MD [Primary Care Provider] - 09/05/24 9:05 am Forms: [facility] Info Instructions
[2024-08-30] MEDS: LOPERAMIDE HCL 2 MG CAPSULE PO (12:57)
--- NOTE | 2024-08-30 15:46 | PC.NURSE ---
Discharge: Patient pleasant and cooperative. Patient vitally stable, lungs course, BS WNL, IV removed, catheter intact. Patient denies pain and is independent in room. Patient tolerating regular diet, urinating well, and with loose stools, loperamide given. Patient signed belongings sheet and discharge form, patient had no further questions regarding discharge. Patient left the floor by wheelchair to home with belongings and son at [id number].
== END 2024-08-30 15:38 | disposition home or self-care (01) ==
LOC: ED 21:22 → MEDSURG 21:22
PROVIDERS: Physician Assistant; Admitting Provider Family Medicine; Emergency Provider Family Medicine; PCP Family Medicine; Visit Provider Family Medicine
DX: J10.1 Influenza due to other identified influenza virus with other respiratory manifestations (principal); A08.4 Viral intestinal infection, unspecified; Q79.0 Congenital diaphragmatic hernia; R10.9 Unspecified abdominal pain; R53.1 Weakness; E87.1 Hypo-osmolality and hyponatremia; E87.6 Hypokalemia; R11.2 Nausea with vomiting, unspecified; R19.7 Diarrhea, unspecified; M54.9 Dorsalgia, unspecified; R05.9 Cough, unspecified; R00.0 Tachycardia, unspecified; M79.10 Myalgia, unspecified site; I10 Essential (primary) hypertension; E78.5 Hyperlipidemia, unspecified; E03.9 Hypothyroidism, unspecified; F43.21 Adjustment disorder with depressed mood
CPT/HCPCS: 36415; 71045; 74177; 80048; 80053; 81001; 82565; 83605; 83735; 83880; 84484; 85025; 85027; 86140; 87086; 87493; 87631; 87798; 93306; 94761; 96361; 96365; 96366; 96372; 96375; 97161; 97165; 97535; 99284; 99285; A9270; G0378; J1650; J2405; J7030; Q9967